=== PATIENT | female | born 1960 | race Native Hawaiian/Other Pacific Islander ===

== ENCOUNTER 2016-12-23 10:14 | Outpatient (CLI) | payer BC ==
[2016-12-23 10:44] LABS: PLATELET COUNT 233 K/uL (152-353)
[2016-12-23 11:23] LABS: POTASSIUM 3.7 mmol/L (3.6-5.2); SODIUM 139 mmol/L (136-145)
== END 2016-12-23 19:16 | disposition home or self-care (01) ==
LOC: LABW 10:14
DX: H02.422 Myogenic ptosis of left eyelid (principal)
CPT/HCPCS: 36415; 80048; 85027; 93005